=== PATIENT | male | born 1985 | race Caucasian/White ===

== ENCOUNTER 2020-08-19 13:07 | Outpatient (REF) | payer OTHER, SELFPAY ==
[2020-08-19 14:12] LABS: MANUAL DIFF FLAG NO
[2020-08-19 14:27] LABS: Basophils Percent Auto 0.1 % (0-2); Eosinophils Percent Auto 0.6 % (0-4); Hematocrit 49.7 % (42-52); Hemoglobin 16.5 g/dl (14.0-18.0); Imm Gran Abs Auto 0.02 X10*3/uL (0.00-0.03); Imm Gran Pct Auto 0.3 % (0.0-0.4); Lymphocytes Absolute Auto 2.2 X10*3/uL (1.2-4.9); Lymphocytes Percent Auto 31.2 % (20-40); Mean Corpuscular HGB Conc 33.2 g/dl (31.0-36.0); Mean Corpuscular Hemoglobin 27.6 pg (27.0-33.0); Mean Corpuscular Volume 83.2 fL (80-98); Mean Platelet Volume 10.8 fL (9.4-12.4); Monocytes Absolute Auto 0.4 X10*3/uL (0.1-1.2); Monocytes Percent Auto 6.3 % (2-11); Neutrophils Absolute Auto 4.3 X10*3/uL (2.0-8.3); Neutrophils Percent Auto 61.5 % (45-73); Platelet Count 284 X10*3/uL (160-400); Red Blood Count 5.97 X10*6/uL (4.60-5.80); Red Cell Distribution Width 12.7 % (11.0-16.0)
[2020-08-19 14:41] LABS: Alanine Aminotransferase 33 U/L (0-40); Albumin Level 4.9 g/dL (3.5-5.0); Alkaline Phosphatase 70 U/L (39-117); Anion Gap 12 (12-20); Aspartate Amino Transferase 22 U/L (5-37); Bilirubin Total 0.6 mg/dL (0.0-1.0); Blood Urea Nitrogen 14 mg/dL (9-16); Calcium 9.6 mg/dL (8.4-10.2); Carbon Dioxide 32 mmol/L (22-29); Chloride 100 mmol/L (96-108); Estimated Glomerular Filt Rate > 60; Glucose Random 91 mg/dL (60-115); Lipase 27 U/L (8-78); Potassium 4.4 mmol/l (3.3-5.1); Sodium 140 mmol/L (135-145); Total Protein 7.5 g/dL (6.5-8.0)
== END 2020-08-19 13:08 | disposition home or self-care (01) ==
LOC: HO.HMGCLDS 13:07
PROVIDERS: PCP Nurse Practitioner Family; Visit Provider Hospitalist
DX: R10.84 Generalized abdominal pain (principal)
CPT/HCPCS: 36415; 80053; 83690; 85025

== ENCOUNTER 2020-08-20 07:34 | Emergency (ER) | payer OTHER, SELFPAY ==
--- NOTE | 2020-08-20 | CT_ITS ---
EXAMINATION: CT ABDOMEN AND PELVIS WITH ORAL CONTRAST CLINICAL INFORMATION: Right lower abdominal pain. COMPARISON: None TECHNIQUE: Multidetector volumetric images were obtained from the superior aspect of the liver through the pubic symphysis following administration of oral contrast. No intravenous contrast given.. Sagittal and coronal reformatted images were obtained on the technologist's workstation. This CT examination was performed using dose optimization techniques as appropriate, variously including the following: *Automated exposure control *Adjustment of mA and/or kV according to patient size (this includes techniques or standardized protocols for targeted exams where dose is matched to indication/reason for exam; i.e. extremities or head) *Use of iterative reconstruction technique DLP: 530 mGy-cm FINDINGS: LUNG BASES: No acute findings. No basilar consolidation or pleural effusion. LIVER: The liver has normal size, shape, and attenuation. GALLBLADDER AND BILIARY TREE: No abnormalities. No radiopaque gallstones, wall thickening or pericholecystic fluid. No bile duct dilatation. PANCREAS: Unremarkable. SPLEEN: Unremarkable. ADRENAL GLANDS: Unremarkable. KIDNEYS AND URETERS: The kidneys are normal in size. No hydroureteronephrosis, urolithiasis or perinephric fluid collection. 1.8 cm cyst of the mid left kidney has a simple appearance on these noncontrast images. BOWEL AND PERITONEUM: Stomach is unremarkable. No dilated loops of bowel. The appendix is normal. No overt bowel wall thickening or mesenteric fat stranding. No ascites or pneumoperitoneum. ABDOMINAL WALL: Small fat-containing umbilical hernia measures 1.7 cm wide. LYMPH NODES AND RETROPERITONEUM: No pathologic sized lymph nodes in the abdomen or pelvis. No inguinal lymphadenopathy. Inferior to level of the renal vessels, there is a smoothly marginated 2.1 x 2.2 x 4.2 cm structure that has a cystic appearance, attenuation in the range of 14-20 Hounsfield units. VASCULATURE: Normal for noncontrast examination. Abdominal aorta is normal in size. BLADDER AND PELVIC VISCERA: Urinary bladder is well distended and has normal wall thickness. No evidence of bladder mass or calculus. Prostate gland and seminal vesicles are unremarkable. No pelvic free fluid. SKELETAL: Unremarkable. IMPRESSION: * No acute findings in the right lower quadrant. The appendix is normal. No evidence of enteritis, colitis or bowel obstruction. * No evidence of urolithiasis or hydronephrosis. * There is a 2.1 x 2.2 x 4.2 cm smoothly marginated retroperitoneal structure in the aortocaval area. This has a cystic appearance on these noncontrast images. It could represent an old lymphatic malformation. Consider MR imaging follow-up without and with IV contrast for further characterization.
[2020-08-20 07:47] VITALS: BP 133/78; PULSE 71; RESP 16; TEMP 36.7; BMI 26.5
--- NOTE | 2020-08-20 08:01 | ED_ITS ---
HPI - Abdominal Pain General Chief Complaint: Abdominal Pain Stated Complaint: ?appendix Time Seen by Provider: 08/20/20 07:54 Source: patient Mode of arrival: ambulatory Limitations: no limitations History of Present Illness HPI narrative: 35 years old man who presented to the emergency department with a chief complaint of abdominal pain x2 days, pain was initially periumbilical and now is located in the right lower quadrant. He denies any fever, vomiting, diarrhea. MD elicited complaint: abdominal pain Pertinent past history: none Onset (ago): day(s) (2) Pain Consistency: constant Location: RLQ Severity: moderate Quality: cramping Radiation: none Migration to: no migration Exacerbating factors: nothing Relieving factors: nothing Associated symptoms: denies other symptoms Related Data Home Medications Medication Instructions Recorded Confirmed methimazole 5 mg tablet 5 mg PO DAILY 08/19/20 08/20/20 Previous Rx's Medication Instructions Recorded famotidine 40 mg tablet 40 mg PO BEDTIME #30 tab 08/19/20 famotidine 40 mg tablet 40 mg PO BEDTIME #30 tab 08/19/20 omeprazole 40 mg capsule,delayed 40 mg PO DAILY #30 cap 08/19/20 release omeprazole 40 mg capsule,delayed 40 mg PO DAILY #30 cap 08/19/20 release Allergies Allergy/AdvReac Type Severity Reaction Status Date / Time Iodinated Contrast Media Allergy Rash Verified 08/20/20 08:20 tetanus and diphtheria Allergy Rash Verified 08/20/20 07:55 toxoids Review of Systems Review of Systems Yes all other systems are reviewed and are negative Cardiovascular: Reports no additional cardiovascular complaints Gastrointestinal: Reports abdominal pain Reports system reviewed and no additional complaints, except as documented Physical Exam Vital Signs and I&O and Narrative: Vital Signs and I&O: Vital Signs Temp Pulse Resp BP Pulse Ox 08/20/20 11:07 98.3 F 82 113/83 97 08/20/20 07:47 98.1 F 71 16 133/78 Body Mass Index 26.5 Const: General: cooperative Orientation/consciousness: oriented to person HENMT: Head: Yes normal to inspection Eyes: General: appearance normal, both eyes and all related structures Neck: Neck: Yes normal visual inspection Chest: Chest palpation & inspection: normal inspection of the chest Resp: Effort & Inspection: normal respiratory effort and able to speak in complete sentences Cardio: Rate: regular rate GI: Inspection: Yes normal to inspection Palpation (GI): Tenderness to palpation present (GI) in the RLQ Skin: General skin exam: no rashes or lesions noted Neuro: General: oriented to person Extrem: General: Yes normal to inspection Psych: Appearance: grossly normal Mental Status: mental status grossly normal Speech and movement: Normal speech and movement present Affect: normal affect Attitude: cooperative MDM - Abdominal Pain Lab Data Result diagrams: 08/20/20 08:03 08/20/20 08:03 Labs: Lab Results 08/20/20 08/20/20 Range/Units 08:03 08:03 WBC 5.0 (4.8-10.8) X10*3/uL RBC 5.83 H (4.60-5.80) X10*6/uL Hgb 16.0 (14.0-18.0) g/dl Hct 48.3 (42-52) % MCV 82.8 (80-98) fL MCH 27.4 (27.0-33.0) pg MCHC 33.1 (31.0-36.0) g/dl RDW 12.9 (11.0-16.0) % Plt Count 242 (160-400) X10*3/uL MPV 10.0 (9.4-12.4) fL Immature Gran % (Auto) 0.2 (0.0-0.4) % Neut % (Auto) 60.0 (45-73) % Lymph % (Auto) 31.2 (20-40) % [place] % (Auto) 7.4 (2-11) % Eos % (Auto) 0.8 (0-4) % Baso % (Auto) 0.4 (0-2) % Lymph # (Auto) 1.6 (1.2-4.9) X10*3/uL [place] # (Auto) 0.4 (0.1-1.2) X10*3/uL Eos # (Auto) 0.0 (0.0-0.4) X10*3/uL Baso # (Auto) 0.0 (0.0-0.2) X10*3/uL Abs Immat Gran (auto) 0.01 (0.00-0.03) X10*3/uL Absolute Neuts (auto) 3.0 (2.0-8.3) X10*3/uL Absolute Nucleated RBC 0.000 (0.0-0.012) X10*3/uL Nucleated RBC % (auto) 0.0 (0.0-0.2) /100WBC Sodium 141 (135-145) mmol/L Potassium 4.5 (3.3-5.1) mmol/l Chloride 104 (96-108) mmol/L Carbon Dioxide 31 H (22-29) mmol/L Anion Gap 11 L (12-20) BUN 16 (9-16) mg/dL Creatinine 1.04 (0.5-1.4) mg/dL Estim Creat Clear Calc 90.9 Estimated GFR > 60 Random Glucose 100 (60-115) mg/dL Calcium 9.6 (8.4-10.2) mg/dL Total Bilirubin 0.8 (0.0-1.0) mg/dL AST 22 (5-37) U/L ALT 33 (0-40) U/L Alkaline Phosphatase 67 (39-117) U/L Total Protein 6.9 (6.5-8.0) g/dL Albumin 4.4 (3.5-5.0) g/dL Lipase 31 (8-78) U/L Imaging Data CT scan - abdomen: Attestation: I personally reviewed and interpreted this imaging study as follows: Radiologist's impression: NORMAL appendex Discharge Plan Discharge Clinical Impression: Abdominal pain Patient Disposition: Home, Self-Care Instructions: Abdominal Pain (ED) Prescriptions: No Action methimazole 5 mg tablet 5 mg PO DAILY RF: 0 omeprazole 40 mg capsule,delayed release(DR/EC) 40 mg PO DAILY Qty: 30 RF: 0 famotidine [Pepcid] 40 mg tablet 40 mg PO BEDTIME Qty: 30 RF: 0 omeprazole 40 mg capsule,delayed release(DR/EC) 40 mg PO DAILY Qty: 30 RF: 0 famotidine [Pepcid] 40 mg tablet 40 mg PO BEDTIME Qty: 30 RF: 2 Referrals: Leni Magaña FNP [Primary Care Provider] - 2 days (follow up with your Primary Care Doctor) Interventions: ED Discharge Assessment Last Done: 08/20/20 11:36 Discharge Date/Time: 08/20/20 11:52 [facility] Past Medical History [facility] Narrative: Patient has a history of hyperthyroidism a Medical History Hernia Social History Social History Alcohol intake: never Smoking Status: Never smoker Use of substances other than those prescribed or required for medical reasons: No Advance Directives: No Advance Directives Information Provided: Yes
[2020-08-20 08:10] LABS: MANUAL DIFF FLAG NO
[2020-08-20 08:12] LABS: Basophils Percent Auto 0.4 % (0-2); Eosinophils Percent Auto 0.8 % (0-4); Hematocrit 48.3 % (42-52); Imm Gran Abs Auto 0.01 X10*3/uL (0.00-0.03); Imm Gran Pct Auto 0.2 % (0.0-0.4); Lymphocytes Absolute Auto 1.6 X10*3/uL (1.2-4.9); Lymphocytes Percent Auto 31.2 % (20-40); Mean Corpuscular HGB Conc 33.1 g/dl (31.0-36.0); Mean Corpuscular Hemoglobin 27.4 pg (27.0-33.0); Mean Corpuscular Volume 82.8 fL (80-98); Monocytes Absolute Auto 0.4 X10*3/uL (0.1-1.2); Monocytes Percent Auto 7.4 % (2-11); Platelet Count 242 X10*3/uL (160-400); Red Blood Count 5.83 X10*6/uL (4.60-5.80); Red Cell Distribution Width 12.9 % (11.0-16.0)
[2020-08-20 08:37] LABS: Alanine Aminotransferase 33 U/L (0-40); Albumin Level 4.4 g/dL (3.5-5.0); Alkaline Phosphatase 67 U/L (39-117); Aspartate Amino Transferase 22 U/L (5-37); Bilirubin Total 0.8 mg/dL (0.0-1.0); Blood Urea Nitrogen 16 mg/dL (9-16); Calcium 9.6 mg/dL (8.4-10.2); Creatinine Clr Calc Pharmacy 90.9; Estimated Glomerular Filt Rate > 60; Glucose Random 100 mg/dL (60-115); Lipase 31 U/L (8-78); Total Protein 6.9 g/dL (6.5-8.0)
[2020-08-20 08:45] LABS: Anion Gap 11 (12-20); Carbon Dioxide 31 mmol/L (22-29); Chloride 104 mmol/L (96-108); Potassium 4.5 mmol/l (3.3-5.1); Sodium 141 mmol/L (135-145)
[2020-08-20] MEDS: Barium Sulfate Oral (Vanilla) 450 ML ORAL.SUSP 900 ML PO (10:48)
[2020-08-20 11:07] VITALS: BP 113/83; PULSE 82; TEMP 36.8; O2SAT 97
--- NOTE | 2020-08-20 11:10 | PC.NURSE ---
introduced self to pt. reports intermittent ongoing pain 2/10, changing intensities. vs wnl, speaking in clear full sentenes. awaiting imaging results.
== END 2020-08-20 11:52 | disposition home or self-care (01) ==
PROVIDERS: Emergency Provider Emergency Medicine; PCP Nurse Practitioner Family
DX: R10.31 Right lower quadrant pain (principal); Z79.899 Other long term (current) drug therapy
CPT/HCPCS: 36415; 74177; 80053; 83690; 85025; 99284

== ENCOUNTER 2020-10-20 10:53 | Emergency (ER) | payer OTHER, SELFPAY ==
[2020-10-20 10:57] VITALS: BP 136/77; PULSE 87; RESP 16; TEMP 37.1; BMI 26.6
[2020-10-20 11:01] VITALS: O2SAT 99
--- NOTE | 2020-10-20 11:27 | ED.GENADULT ---
HPI - General Adult General Chief complaint: General Medical Stated complaint: Multiple Symptoms Time Seen by Provider: 10/20/20 11:12 Source: patient and old records reviewed Mode of arrival: ambulatory Limitations: no limitations History of Present Illness MD complaint: doesn't feel well, abdominal pain x 1 year, COVID exposure Onset (ago): unknown (abdominal pain x 1 year already worked up had MRI on saturday persistent lymphatic malformation, hasn't felt well with viral symptoms since yesterday) Location: chest and abdomen Severity: moderate and similar to prior episodes Quality: aching and constant Pain Consistency: constant Relieving factors: none Exacerbating factors: none Associated symptoms: chest pain, cough, fever/chills, loss of appetite and malaise Treatments prior to arrival: none Related Data Home Medications Medication Instructions Recorded Confirmed methimazole 5 mg tablet 5 mg PO DAILY 08/19/20 08/20/20 Previous Rx's Medication Instructions Recorded famotidine 40 mg tablet 40 mg PO BEDTIME #30 tab 08/19/20 famotidine 40 mg tablet 40 mg PO BEDTIME #30 tab 08/19/20 omeprazole 40 mg capsule,delayed 40 mg PO DAILY #30 cap 08/19/20 release omeprazole 40 mg capsule,delayed 40 mg PO DAILY #30 cap 08/19/20 release Allergies Allergy/AdvReac Type Severity Reaction Status Date / Time Iodinated Contrast Media Allergy Rash Verified 08/20/20 08:20 tetanus and diphtheria Allergy Rash Verified 08/20/20 07:55 toxoids Review of Systems Review of Systems: Constitutional : No Weight loss, No Fever, No Chills ENT/Mouth : No sore throat, No Rhinorrhea Eyes: No Eye Pain, No Swelling Cardiovascular : pos Chest Pain, no SOB, no Dyspnea on Exertion, No Orthopnea, No Edema, No Palpitations Respiratory : No Cough, No Sputum Gastrointestinal : no Nausea, No Vomiting, No Diarrhea, pos abdominal Pain, No Hematochezia, No Melena Genitourinary : No Dysuria, No Urinary Frequency Musculoskeletal : No joint pain, No Myalgias, No Joint Swelling Skin : No Skin Lesions, No rash Neuro : No Weakness, No Numbness, No Dizziness, No Headache Psych : No Anxiety/Panic, No Depression Heme/Lymph: No Bruising, No Lymphadenopathy Endocrine : No Polyuria, No Polydipsia All other systems reviewed and are negative PMFSH Past Medical History Medical History Hernia Social History Social History Alcohol intake: never Smoking Status: Former smoker Use of substances other than those prescribed or required for medical reasons: No Advance Directives: No Advance Directives Information Provided: Yes Physical Exam Vital Signs: Vital Signs: Last Vital Signs Temp 98.7 F 10/20/20 10:57 Pulse 87 10/20/20 10:57 Resp 16 10/20/20 10:57 BP 136/77 10/20/20 10:57 Pulse Ox 99 10/20/20 11:01 Body Mass Index 26.6 Appearance: Alert. Oriented X3. No acute distress. Very anxious Eyes: Pupils equal, round and reactive to light. ENT: Pharynx normal. Neck: Normal inspection. Neck supple. CVS: Normal heart rate and rhythm. Pulses normal. Respiratory: No respiratory distress. Breath sounds normal. Abdomen: Soft and ttp no rebound or guarding in LUQ Skin: Skin warm and dry. Normal skin color. Normal skin turgor. Extremities: No lower extremity edema. No calf ttp Neuro: Oriented X 3. No motor deficit. No sensory deficit. Course Course Course Narrative: negative workup, no change in CT scan from MRI for lymphatic malformation, abdominal pain x 1 year, stable VS and labs, negative COVID can be DC Medical Decision Making MDM Narrative Medical decision making narrative: 35 yo male who is very anxious coming in with LUQ pain x 1 year just had MRI for this which showed a lymphatic malformation, seen in august with same dx, now c/o some chest pain as well and COVID exposure at this time, will obtain basic labs, EKG, CXR< troponin x 1, COVID swab, abdominal pain is chronic in nature just had MRI no need for repeat imaging. Lab Data Result diagrams: 10/20/20 11:41 10/20/20 11:41 Labs: Lab Results 10/20/20 10/20/20 10/20/20 Range/Units 11:41 11:41 11:41 WBC 5.5 (4.8-10.8) X10*3/uL RBC 6.14 H (4.60-5.80) X10*6/uL Hgb 16.8 (14.0-18.0) g/dl Hct 50.5 (42-52) % MCV 82.2 (80-98) fL MCH 27.4 (27.0-33.0) pg MCHC 33.3 (31.0-36.0) g/dl RDW 12.7 (11.0-16.0) % Plt Count 266 (160-400) X10*3/uL MPV 10.4 (9.4-12.4) fL Immature Gran % (Auto) 0.4 (0.0-0.4) % Neut % (Auto) 60.2 (45-73) % Lymph % (Auto) 31.1 (20-40) % [place] % (Auto) 7.6 (2-11) % Eos % (Auto) 0.5 (0-4) % Baso % (Auto) 0.2 (0-2) % Lymph # (Auto) 1.7 (1.2-4.9) X10*3/uL [place] # (Auto) 0.4 (0.1-1.2) X10*3/uL Eos # (Auto) 0.0 (0.0-0.4) X10*3/uL Baso # (Auto) 0.0 (0.0-0.2) X10*3/uL Abs Immat Gran (auto) 0.02 (0.00-0.03) X10*3/uL Absolute Neuts (auto) 3.3 (2.0-8.3) X10*3/uL Absolute Nucleated RBC 0.000 (0.0-0.012) X10*3/uL Nucleated RBC % (auto) 0.0 (0.0-0.2) /100WBC Hold Blue Top SEE NOTE Sodium 139 (135-145) mmol/L Potassium 4.1 (3.3-5.1) mmol/l Chloride 101 (96-108) mmol/L Carbon Dioxide 28 (22-29) mmol/L Anion Gap 14 (12-20) BUN 11 (9-16) mg/dL Creatinine 0.93 (0.5-1.4) mg/dL Estim Creat Clear Calc 101.6 Estimated GFR > 60 Random Glucose 91 (60-115) mg/dL Calcium 9.6 (8.4-10.2) mg/dL Magnesium (1.6-2.6) mg/dL Total Bilirubin (0.0-1.0) mg/dL Direct Bilirubin (0.0-0.5) mg/dL AST (5-37) U/L ALT (0-40) U/L Alkaline Phosphatase (39-117) U/L Troponin I High Sens (<3.5-35.0) ng/L Total Protein (6.5-8.0) g/dL Albumin (3.5-5.0) g/dL Lipase (8-78) U/L Coronavirus (PCR) (Negative) Influenza Type A (PCR) (Negative) Influenza Type B (PCR) (Negative) RSV RNA Qual (PCR) (Negative) 10/20/20 10/20/20 10/20/20 Range/Units 11:41 11:41 11:49 WBC (4.8-10.8) X10*3/uL RBC (4.60-5.80) X10*6/uL Hgb (14.0-18.0) g/dl Hct (42-52) % MCV (80-98) fL MCH (27.0-33.0) pg MCHC (31.0-36.0) g/dl RDW (11.0-16.0) % Plt Count (160-400) X10*3/uL MPV (9.4-12.4) fL Immature Gran % (Auto) (0.0-0.4) % Neut % (Auto) (45-73) % Lymph % (Auto) (20-40) % [place] % (Auto) (2-11) % Eos % (Auto) (0-4) % Baso % (Auto) (0-2) % Lymph # (Auto) (1.2-4.9) X10*3/uL [place] # (Auto) (0.1-1.2) X10*3/uL Eos # (Auto) (0.0-0.4) X10*3/uL Baso # (Auto) (0.0-0.2) X10*3/uL Abs Immat Gran (auto) (0.00-0.03) X10*3/uL Absolute Neuts (auto) (2.0-8.3) X10*3/uL Absolute Nucleated RBC (0.0-0.012) X10*3/uL Nucleated RBC % (auto) (0.0-0.2) /100WBC Hold Blue Top Sodium (135-145) mmol/L Potassium (3.3-5.1) mmol/l Chloride (96-108) mmol/L Carbon Dioxide (22-29) mmol/L Anion Gap (12-20) BUN (9-16) mg/dL Creatinine (0.5-1.4) mg/dL Estim Creat Clear Calc Estimated GFR Random Glucose (60-115) mg/dL Calcium (8.4-10.2) mg/dL Magnesium 2.2 (1.6-2.6) mg/dL Total Bilirubin 0.4 (0.0-1.0) mg/dL Direct Bilirubin 0.3 (0.0-0.5) mg/dL AST 22 (5-37) U/L ALT 31 (0-40) U/L Alkaline Phosphatase 72 (39-117) U/L Troponin I High Sens < 3.5 (<3.5-35.0) ng/L Total Protein 7.7 (6.5-8.0) g/dL Albumin 4.8 (3.5-5.0) g/dL Lipase 34 (8-78) U/L Coronavirus (PCR) NEGATIVE (Negative) Influenza Type A (PCR) NEGATIVE (Negative) Influenza Type B (PCR) NEGATIVE (Negative) RSV RNA Qual (PCR) NEGATIVE (Negative) ECG Data Attestation: I personally reviewed and interpreted this ECG as follows: Interpretation: Rate: 87 Rhythm: NSR [place]: normal Normal P waves. Normal CAL. Normal QRS complex. ST T wave : normal qTC: normal prior studies: no acute ischemia The study has been interpreted contemporaneously by me. . Discharge Plan Discharge Clinical Impression: Abdominal pain Qualifiers: Abdominal location: left upper quadrant Qualified Code(s): R10.12 - Left upper quadrant pain Patient Disposition: Home, Self-Care Instructions: Abdominal Pain (ED) Additional Instructions: return to ED for any worsening symptoms or concerns your covid test was negative in the emergency department today Prescriptions: No Action methimazole 5 mg tablet 5 mg PO DAILY RF: 0 omeprazole 40 mg capsule,delayed release(DR/EC) 40 mg PO DAILY Qty: 30 RF: 0 famotidine [Pepcid] 40 mg tablet 40 mg PO BEDTIME Qty: 30 RF: 0 omeprazole 40 mg capsule,delayed release(DR/EC) 40 mg PO DAILY Qty: 30 RF: 0 famotidine [Pepcid] 40 mg tablet 40 mg PO BEDTIME Qty: 30 RF: 2 Referrals: Leni Magaña FNP [Primary Care Provider] - 2 days (please follow up with your doctor) Stand Alone Forms: Work/School Release
--- NOTE | 2020-10-20 11:28 | ECG_ITS ---
Test Reason : COVID SYMPTOMS Blood Pressure : / mmHG Vent. Rate : 087 BPM Atrial Rate : 087 BPM P-R Int : 154 ms QRS Dur : 084 ms QT Int : 360 ms P-R-T Axes : 056 025 041 degrees QTc Int : 433 ms Normal sinus rhythm Normal ECG No previous ECGs available Referred By: Iman Gonzalez Electronically Signed By:EUGENIE EASLEY
--- NOTE | 2020-10-20 11:29 | XR_ITS ---
EXAMINATION: XR CHEST CLINICAL INFORMATION: Chest pain. COMPARISON: None TECHNIQUE: Frontal view of the chest was obtained. FINDINGS: No significant abnormality is noted involving the heart, lungs, mediastinum, bony thorax or soft tissues. XR/XR chest 1V IMPRESSION: Unremarkable chest examination.
[2020-10-20 11:52] LABS: MANUAL DIFF FLAG NO
[2020-10-20 11:57] LABS: Basophils Percent Auto 0.2 % (0-2); Eosinophils Percent Auto 0.5 % (0-4); Hematocrit 50.5 % (42-52); Hemoglobin 16.8 g/dl (14.0-18.0); Imm Gran Abs Auto 0.02 X10*3/uL (0.00-0.03); Imm Gran Pct Auto 0.4 % (0.0-0.4); Lymphocytes Absolute Auto 1.7 X10*3/uL (1.2-4.9); Lymphocytes Percent Auto 31.1 % (20-40); Mean Corpuscular HGB Conc 33.3 g/dl (31.0-36.0); Mean Corpuscular Hemoglobin 27.4 pg (27.0-33.0); Mean Corpuscular Volume 82.2 fL (80-98); Mean Platelet Volume 10.4 fL (9.4-12.4); Monocytes Absolute Auto 0.4 X10*3/uL (0.1-1.2); Monocytes Percent Auto 7.6 % (2-11); Neutrophils Absolute Auto 3.3 X10*3/uL (2.0-8.3); Neutrophils Percent Auto 60.2 % (45-73); Platelet Count 266 X10*3/uL (160-400); Red Blood Count 6.14 X10*6/uL (4.60-5.80); Red Cell Distribution Width 12.7 % (11.0-16.0); White Blood Count 5.5 X10*3/uL (4.8-10.8)
--- NOTE | 2020-10-20 12:10 | PC.NURSE ---
pt alert and oriented, skin pwd, respirations even and unlabored. pt reports getting pain in the left upper quad of the abd feels burning and chest tightness. had at mri done at [facility] [place] but has not followed up with the md. also states feeling under the weather, some body aches, states that multiple coworkers have been tested positive recently.
[2020-10-20 12:22] LABS: Anion Gap 14 (12-20); Blood Urea Nitrogen 11 mg/dL (9-16); Calcium 9.6 mg/dL (8.4-10.2); Carbon Dioxide 28 mmol/L (22-29); Chloride 101 mmol/L (96-108); Creatinine Clr Calc Pharmacy 101.6; Estimated Glomerular Filt Rate > 60; Glucose Random 91 mg/dL (60-115); Potassium 4.1 mmol/l (3.3-5.1); Sodium 139 mmol/L (135-145)
[2020-10-20 12:23] LABS: Alanine Aminotransferase 31 U/L (0-40); Albumin Level 4.8 g/dL (3.5-5.0); Alkaline Phosphatase 72 U/L (39-117); Aspartate Amino Transferase 22 U/L (5-37); Bilirubin Direct 0.3 mg/dL (0.0-0.5); Bilirubin Total 0.4 mg/dL (0.0-1.0); Lipase 34 U/L (8-78); Magnesium 2.2 mg/dL (1.6-2.6); Total Protein 7.7 g/dL (6.5-8.0)
[2020-10-20 12:29] LABS: Troponin-I High Sensitivity < 3.5 ng/L (<3.5-35.0)
[2020-10-20 12:47] LABS: Influenza A PCR NEGATIVE (Negative); Influenza B PCR NEGATIVE (Negative); Resp Syncy Virus RNA Qual PCR NEGATIVE (Negative); SARS COV2 PCR INHOUSE NEGATIVE (Negative)
[2020-10-20 13:31] VITALS: BP 146/91; PULSE 91; RESP 18; O2SAT 100
== END 2020-10-20 13:32 | disposition home or self-care (01) ==
PROVIDERS: Emergency Provider Emergency Medicine; PCP Nurse Practitioner Family
DX: R10.12 Left upper quadrant pain (principal); Z20.828 Contact with and (suspected) exposure to other viral communicable diseases; R05 Cough
CPT/HCPCS: 0241U; 36415; 71045; 80048; 80076; 83690; 83735; 84484; 85025; 93005; 99284

== ENCOUNTER 2020-12-20 14:47 | Outpatient (REF) | payer OTHER, SELFPAY ==
[2020-12-20 16:27] LABS: MANUAL DIFF FLAG NO
[2020-12-20 16:32] LABS: Basophils Percent Auto 0.3 % (0-2); Eosinophils Absolute Auto 0.1 X10*3/uL (0.0-0.4); Eosinophils Percent Auto 1.3 % (0-4); Hematocrit 48.9 % (42-52); Hemoglobin 16.1 g/dl (14.0-18.0); Imm Gran Abs Auto 0.02 X10*3/uL (0.00-0.03); Imm Gran Pct Auto 0.3 % (0.0-0.4); Lymphocytes Absolute Auto 2.3 X10*3/uL (1.2-4.9); Lymphocytes Percent Auto 36.9 % (20-40); Mean Corpuscular HGB Conc 32.9 g/dl (31.0-36.0); Mean Corpuscular Hemoglobin 27.3 pg (27.0-33.0); Mean Corpuscular Volume 82.9 fL (80-98); Mean Platelet Volume 10.6 fL (9.4-12.4); Monocytes Absolute Auto 0.4 X10*3/uL (0.1-1.2); Monocytes Percent Auto 6.8 % (2-11); Neutrophils Absolute Auto 3.4 X10*3/uL (2.0-8.3); Neutrophils Percent Auto 54.4 % (45-73); Platelet Count 244 X10*3/uL (160-400); White Blood Count 6.2 X10*3/uL (4.8-10.8)
[2020-12-20 16:56] LABS: Amylase 51 U/L (28-100); Anion Gap 16 (12-20); Blood Urea Nitrogen 14 mg/dL (9-16); Calcium 9.3 mg/dL (8.4-10.2); Carbon Dioxide 30 mmol/L (22-29); Chloride 100 mmol/L (96-108); Estimated Glomerular Filt Rate > 60; Glucose Random 86 mg/dL (60-115); Lipase 37 U/L (8-78); Potassium 4.9 mmol/L (3.3-5.1); Sodium 141 mmol/L (135-145)
[2020-12-21 04:47] LABS: LDL Cholesterol Direct 180 mg/dL (<100)
== END 2020-12-20 14:48 | disposition home or self-care (01) ==
LOC: HO.HMGCLDS 14:47
PROVIDERS: PCP Internal Medicine; Visit Provider Internal Medicine
DX: R10.12 Left upper quadrant pain (principal); N28.1 Cyst of kidney, acquired
CPT/HCPCS: 36415; 80048; 82150; 83690; 83721; 85025

== ENCOUNTER → 2021-01-11 15:44 | Outpatient (BNVA) | payer OTHER, SELFPAY | PROVIDERS: PCP Internal Medicine; Visit Provider Nurse Practitioner ==

== ENCOUNTER 2021-01-16 16:22 | Outpatient (REF) | payer OTHER, SELFPAY | END 2021-01-16 16:23 | disposition home or self-care (01) | LOC: HO.LNP 16:22 | PROVIDERS: Visit Provider Nurse Practitioner | DX: R10.13 Epigastric pain (principal) | CPT/HCPCS: 87338 ==

== ENCOUNTER → 2021-02-08 13:37 | Outpatient (BNVA) | payer OTHER, SELFPAY | PROVIDERS: PCP Internal Medicine; Visit Provider Nurse Practitioner ==

== ENCOUNTER → 2021-04-13 14:22 | Outpatient (BNVA) | payer OTHER, SELFPAY | PROVIDERS: PCP Internal Medicine; Referring Provider Internal Medicine; Visit Provider Surgery ==